=== PATIENT | female | born 1945 | race Caucasian/White ===

== ENCOUNTER 2025-08-01 10:04 | Emergency (ER) | payer MEDICARE, OTHER, SELFPAY ==
[2025-08-01] VITALS (7 sets, daily range): BP systolic 136–170; BP diastolic 84–92; PULSE 62–83; RESP 13–20; TEMP 35.9; O2SAT 94–99; BMI 37.8
--- NOTE | 2025-08-01 10:23 | CRLHL7_ITS ---
For Patients: As a result of the Century Cures Act, medical imaging exams and procedure reports are released immediately into your electronic medical record. You may view this report before your referring provider. If you have questions, please contact your health care provider. INDICATION: Chest pain. TECHNIQUE: Chest 1 views. COMPARISON: None. FINDINGS: Cardiovasculature and mediastinum: Heart size is normal. Unremarkable mediastinum. Lungs and pleural spaces: Lungs are clear. No sign of infiltrate or mass. No sign of pleural effusion. No pneumothorax. Bones and soft tissues: No significant findings. IMPRESSION: Negative chest. Dictated by Archie Butler MD @ 08/01/2025 10:48:32 AM (Electronically Signed)
[2025-08-01 10:34] LABS: Hematocrit* 43.1 % (33.0-51.0); Hemoglobin* 14.7 gm/dL (12.0-16.0); Immature Granulocytes Abs Auto 0.03 K/uL (0.00-0.30); Immature Granulocytes Pct Auto 0.5 %; Lymphocytes Absolute Auto 2.21 K/uL (0.90-2.90); Mean Corpuscular HGB Conc 34 gm/dL (32-36); Mean Corpuscular Hemoglobin 32 pg (26-34); Mean Corpuscular Volume 93 fL (80-100); RDW Coefficient of Variation % 13.4 % (11.5-15.5); Red Blood Count* 4.66 m/uL (4.00-5.20); White Blood Count* 6.13 K/uL (4.50-11.00)
[2025-08-01 10:39] LABS: Slide Review Reflex No
--- NOTE | 2025-08-01 10:42 | ED.CHESTPAIN ---
HPI - Chest Pain General Chief Complaint: Chest Pain Stated Complaint: chest/back pain Time Seen by Provider: 08/01/25 10:19 History of Present Illness HPI narrative: Patient is a 79-year-old woman who comes in today with 5 days of chest pain that she feels on the left side of her chest. She has no radiculopathy no fevers no chills no night sweats. She noticed at the beginning of her symptoms 5 days ago that she had a cracking sensation in the left side of her chest over the area where she is tender in the lateral clavicular line wall sleeping. She has no history of any coronary disease. She is worried that she may have a tumor or be having a heart attack. Time arrival EKG shows normal sinus rhythm without acute ST or T-wave changes. No other significant symptoms noted. Related Data Home Medications ?Medication ?Instructions ?Recorded ?Confirmed amlodipine 5 mg tablet 5 mg PO DAILY 08/01/25 08/01/25 atorvastatin 10 mg PO 08/01/25 gabapentin 300 mg capsule 300 mg PO TID 08/01/25 08/01/25 hydrochlorothiazide 25 mg PO 08/01/25 losartan 100 mg PO 08/01/25 Allergies Allergy/AdvReac Type Severity Reaction Status Date / Time house dust Allergy Unknown Verified 08/01/25 10:10 Review of Systems Status of ROS Reports: 10 or more systems reviewed and unremarkable except as noted in History and below PFSH [facility] Social History Smoking Status: Former smoker Non-prescribed substance use: denies use Exam Narrative Exam Narrative: EXAM GENERAL: Patient appears comfortable and well. EYES: No scleral icterus. LYMPH: No supraclavicular or cervical lymphadenopathy. SKIN: Visible skin seen during exam normal or with benign process only. EXT: No dependent lower extremity pedal edema. HEART: Regular rate and rhythm with no murmurs, rubs, or gallops. LUNGS: Clear to auscultation bilaterally with no crackles or wheezes. ABD: Soft, non tender, non distended. PSYCH: Good eye contact, speech is not pressured. Const Vital Signs, click to edit/add: Vital Signs - 24 hr 08/01/25 10:08 08/01/25 10:10 08/01/25 10:34 Temperature 96.7 F L Pulse Rate 74 Pulse Rate [Pulse Oximeter] 83 Respiratory Rate 20 13 Blood Pressure 168/84 H Blood Pressure [Right Upper Arm] 136/90 H Pulse Oximetry 96 94 95 Oxygen Delivery Method Room Air 08/01/25 11:01 Temperature Pulse Rate 62 Pulse Rate [Pulse Oximeter] Respiratory Rate Blood Pressure 164/92 H Blood Pressure [Right Upper Arm] Pulse Oximetry 95 Oxygen Delivery Method Course Course ED Course: Patient seen examined. EKG personally reviewed. CBC comprehensive metabolic panel troponin D-dimer portable chest x-ray pending. Vital Signs Vital signs: Initial Vital Signs Temperature 96.7 F L 08/01/25 10:08 Temperature Source Temporal Artery Scan 08/01/25 10:08 Pulse Rate 83 08/01/25 10:08 Respiratory Rate 20 08/01/25 10:08 Blood Pressure 136/90 H 08/01/25 10:08 Blood Pressure Mean 105 08/01/25 10:08 Blood Pressure Position Sitting 08/01/25 10:08 Pulse Oximetry 96 08/01/25 10:08 Oxygen Delivery Method Room Air 08/01/25 10:08 Vital Signs Temperature 96.7 F L 08/01/25 10:08 Pulse Rate 83 08/01/25 10:08 Respiratory Rate 20 08/01/25 10:08 Blood Pressure 136/90 H 08/01/25 10:08 Pulse Oximetry 96 08/01/25 10:08 Oxygen Delivery Method Room Air 08/01/25 10:08 Temperature 96.7 F L 08/01/25 10:08 Pulse Rate 62 08/01/25 11:01 Respiratory Rate 13 08/01/25 10:34 Blood Pressure 164/92 H 08/01/25 11:01 Pulse Oximetry 95 08/01/25 11:01 Oxygen Delivery Method Room Air 08/01/25 10:08 MDM - Chest Pain MDM Narrative Medical decision making narrative: Patient is a 79-year-old woman who rolled over in bed 5 days ago and heard a popping sensation in the left lateral chest. She has had 4 to 5/10 pain. She comes in today were EKG shows normal sinus rhythm without acute ST or T-wave changes. D-dimer borderline bed think still acceptable troponin negative electrolytes unremarkable CBC unremarkable chest x-ray unremarkable upon my review. My exam is unremarkable in her labs are stable. At this time I did ask her to rotate Tylenol Motrin ice follow-up with her primary physician as needed. Lab Data Labs: Lab Results 08/01/25 Range/Units 10:25 WBC 6.13 (4.50-11.00) K/uL RBC 4.66 (4.00-5.20) m/uL Hgb 14.7 (12.0-16.0) gm/dL Hct 43.1 (33.0-51.0) % MCV 93 (80-100) fL MCH 32 (26-34) pg MCHC 34 (32-36) gm/dL RDW Coeff of Valentina 13.4 (11.5-15.5) % Plt Count 212 (140-440) K/uL Neut % (Auto) 48.2 (42.0-72.0) % Lymph % (Auto) 36.1 (20-44) % [place] % (Auto) 12.1 H (0.0-11.0) % Eos % (Auto) 2.3 (0.0-7.0) % Baso % (Auto) 0.8 (0.0-3.0) % Neut # (Auto) 2.96 (1.7-7.0) K/uL Lymph # (Auto) 2.21 (0.90-2.90) K/uL [place] # (Auto) 0.70 (0.00-0.90) K/UL Eos # (Auto) 0.14 (0.00-0.50) K/uL Baso # (Auto) 0.05 (0.00-0.30) K/uL Abs Immat Gran (auto) 0.03 (0.00-0.30) K/uL Imm/Tot Granulo (auto) 0.5 % D-Dimer Quant (PE/DVT) 0.70 H (0.00-0.50) ug/ml Sodium 133 L (135-149) mmol/L Potassium 3.8 (3.6-5.1) mmol/L Chloride 98 (96-114) mmol/L Carbon Dioxide 26 (20-32) mmol/L Anion Gap 9 (7-15) mEq/L BUN 15 (7-30) mg/dL Creatinine 0.7 (0.5-1.5) mg/dL Estimated Creat Clear 40.68 Estimated GFR 89 ml/min Glucose 116 H (60-115) mg/dL Calcium 9.3 (8.4-10.6) mg/dL Total Bilirubin 0.8 (0.1-1.5) mg/dL AST 39 H (12-35) U/L ALT 33 (4-35) U/L Alkaline Phosphatase 68 (40-150) U/L Troponin I < 0.01 (0.01-0.04) ng/mL Total Protein 7.4 (6.0-8.3) g/dL Albumin 4.5 (3.3-5.0) g/dL POC Troponin I 0.00 L (0.01-0.04) ng/ml Discharge Plan Discharge Clinical Impression: Chest pain Patient Disposition: Home, Self-Care Condition: Stable Instructions: Chest Pain (ED) Additional Instructions: Tylenol 650 mg 4 times a day as needed Motrin 600 mg 4 times a day as needed Ice Follow-up with your doctor as needed. Activity Level: No Restrictions Discharge Diet: Regular Prescriptions: No Action losartan 100 mg PO atorvastatin 10 mg PO hydrochlorothiazide 25 mg PO amlodipine 5 mg tablet 5 mg PO DAILY gabapentin 300 mg capsule 300 mg PO TID Follow Up/Referrals: Suzanne Frank DO [Primary Care Provider, Family Practice] Stand Alone Forms: MyHealth Info Instructions
[2025-08-01 10:47] LABS: Chloride* 98 mmol/L (96-114)
[2025-08-01 10:48] LABS: Albumin* 4.5 g/dL (3.3-5.0); Potassium* 3.8 mmol/L (3.6-5.1); Sodium* 133 mmol/L (135-149)
[2025-08-01 10:51] LABS: Alanine Aminotransferase* 33 U/L (4-35); Alkaline Phosphatase* 68 U/L (40-150); Anion Gap 9 mEq/L (7-15); Aspartate Amino Transferase* 39 U/L (12-35); Bilirubin Total* 0.8 mg/dL (0.1-1.5); Blood Urea Nitrogen* 15 mg/dL (7-30); Calcium* 9.3 mg/dL (8.4-10.6); Carbon Dioxide* 26 mmol/L (20-32); Creatinine* 0.7 mg/dL (0.5-1.5); Est. Creatinine Clearance* 40.68; Estimated Glomerular Filt Rate 89 ml/min; Glucose* 116 mg/dL (60-115); Total Protein* 7.4 g/dL (6.0-8.3)
[2025-08-01 10:53] LABS: D Dimer Quantitative* 0.70 ug/ml (0.00-0.50); Troponin, Point-of-Care* 0.00 ng/ml (0.01-0.04)
--- OUTSIDE RECORDS SUMMARY | 2025-08-01 11:06 | XMS_ITS | Clinical Summary ---
Author Organization [employer] [facility] Address [facility] [place] [address] Care Team Providers Care Master Naval Parachutist Name Role Phone Suzanne Frank DO Primary Care Provider [phone] David Daly MD Unavailable Allergies Active Allergy Reactions Criticality Noted Date Comments Diclofenac 05/12/2009 Lisinopril Cough 03/28/2016 Piroxicam Cough 05/12/2009 Unknown-Follow Up Needed (Include Details In Comments) Cough 05/16/2010 Pain med- pt unsure of name Medications MULTIVITAMIN TAB take 1 tablet by oral route once daily with food 0 05/07/20 08 Active medication order [facility] Triple strength that contains Glucosamine Hydrochloride 1500 mg and Chondroitin Sulfate Sodium 1200 mg. Per patient medical message dated 06/16/21 0 06/16/20 21 Active Blood Pressure Monitor KitIndications:Hy pertension, unspecified type Frequency of testing: daily 1 Each 10/20/19 25 Active gabapentin (NEURONTIN) 300 mg capsule Take 300 mg by mouth three times daily. 07/29/20 24 Active atorvastatin (LIPITOR) 10 mg tabletIndications :Hyperlipidemia, unspecified hyperlipidemia type Take 1 Tablet (10 mg) by mouth at bedtime. 90 Tablet 3 11/17/19 25 Active amLODIPine 5 mg tabletIndications :HTN (hypertension) Take 1 Tablet (5 mg) by mouth once daily. 90 Tablet 2 04/14/20 25 Active losartan (COZAAR) 100 mg tabletIndications :HTN (hypertension) Take 1 Tablet (100 mg) by mouth once daily. 90 Tablet 06/12/20 25 Active hydroCHLOROthiazi de 25 mg tabletIndications :HTN (hypertension) Take 1 Tablet (25 mg) by mouth once daily. 90 Tablet 07/08/20 25 Active hydroCHLOROthiazi de 25 mg tabletIndications :HTN (hypertension) Take 1 Tablet (25 mg) by mouth once daily. 90 Tablet 1 11/17/19 25 025 Discontin ued(Reord er (E-cancel not sent)) Active Problems Problem Noted Date Diagnosed Date Multiple thyroid nodules 02/17/2025 Overview (02/17/2025): Identified on US in February 2025; one year follow up recommended. Mixed hyperlipidemia 01/07/2025 Class 2 severe obesity due t o excess calories with serious comorbidity and body mass index (BMI) of 39.0 to 39.9 in adult 01/07/2025 Osteoarthritis of spine with radiculopathy, lumb ar region 01/07/2025 Elevated glucose 01/07/2025 Obesity (BMI 30-39.9) 06/01/2021 Trigger thumb 05/11/2015 Degenerative arthritis of thumb 03/22/2015 Family history of breast cancer in mother 2010 HTN (hypertension) Tobacco abuse, in remission Encounters Date Type Department Care Team Description 07/31/2025 Nurse Triage [facility] [address] [place] [address] Suzanne Frank, DO Chest Pain 07/07/2025 Refill [facility] [address] [place] [address] Suzanne Frank, DO Refill Request (Hydrochlorothiazide 25mg tablets) 06/30/2025 7:30 AM CDT Office Visit [facility] [address] [place] [address] Suzanne Frank, DO Cough (Patient states she has had a cough for 12 days. She has used over the counter medications to help, but it hasn't cleared up. She has had runny nose.) 06/30/2025 Travel 06/28/2025 Travel 06/26/2025 Travel 06/12/2025 11:30 AM CDT Telemedicine [facility] [address] [place] [address] David Daly MD Telehealth (No vitals taken; Pt is in [place], [place] /); Medication Management ([facility]/ NO MEDS/) 06/10/2025 Refill [facility] [address] [place] [address] Suzanne Frank DO Refill Request (Losartan 100mg) 06/07/2025 Travel 05/20/2025 Orders Only [address] [address] Ladarius Griffith MD <No scans attached> 05/18/2025 2:00 PM CDT Ancillary Procedure [facility] [address] [place] [address] 05/18/2025 Travel 05/13/2025 Orders Only [facility] Scanner 1 scan: (1-Ord) INCOMING RECORDS-MRI, [facility], 05/13/2025 05/13/2025 Travel 05/12/[address] [address] Ladarius Griffith MD Questions (X-ray) 05/07/2025 10:30 AM CDT Office Visit [address] [address] Ladarius Griffith MD Consult () - Subclinical hyperthyroidism/E04. 2 (ICD-10-CM) - Multiple thyroid nodules/R94.6 (ICD-10-CM) - Abnormal thyroid radioactive iodine uptake (RAIU) test /referred bySuzanne Frank DO /) 05/07/2025 Travel 05/02/2025 Travel from Last 3 Months Immunizations Immunization Administration Dates Next Due COVID-19 vaccine ([employer] 30mcg/0.3mL) P F, MDV 12/31/2020,12/10/2020 Pneumococcal Poly,23-Valent (Pneumovax) 06/01/20 21 Pneumococcal conj 13-Valent (Prevnar 13) 019 RSV, Recombinant ADJ Reconst ituted (Arexvy 120MCG/0.5mL) 12/15/2024 Td (Age >=7 Years) 05/12/2019,10/27/1997 Tdap 06/03/2007 Family History Medical History Relation Name Comments Hypertension Father Cancer-breast Mother 53 old Other Mother mastectomy- Cancer-colon Paternal Aunt Cancer-ovarian No Family History Cancer-prostate No Family History Relation Name Status Comments Father Mother Alive b 1924 Paternal Aunt Social History Tobacco Use Types Packs/Day Years Used Date Smoking Tobacco: Former Smokeless Tobacco: Never Comments:Quit 1974 Alcohol Use Standard Drinks/Week Comments No 0 (1 standard drink = 0.6 oz pur e alcohol) PHQ-2 Answer Date Recorded PHQ-2 TOTAL SCORE 0 11/17/2024 Social Connections Answer Date Recorded Do you often feel lonely or isolated from those around you? 0 09/17/2024 Alcohol Use Answer Date Recorded How often do you have a drink containing alcohol ? 0 06/30/2025 How many drinks containing a lcohol do you have on a typical day when you are drinking? 0 06/30/2025 How often do you have five or more drinks on one occasion? 0 06/30/2025 Financial Resource Strain Answer Date R ecorded Difficulty of Paying Living Expenses 3 09/17/2024 Difficulty of Paying Living Expenses Not on file 09/17/2024 Food Insecurity Answer Date Recorded Do you worry your food will run out before you are able to buy more? 1 09/17/2024 Transportation Needs Answer Date Record ed Does lack of transportation keep you from medica l appointments? 1 09/17/2024 Does lack of transportation keep you from work, meetings or getting things that you need? 1 09/17/2024 Housing Stability Answer Date Recorded What is your housing situation today? 1 09/17/2024 Utilities Answer Date Recorded Do you have trouble paying f or utilities (for example, heat, electricity, water, phone)? 1 09/17/2024 Comments No Sex and Gender Information Value Date Recorded Sex Assigned at Not on file Legal Sex Female 6:29 AM WORKFORCE STAFFING ADVISOR Gender Identity Not on file Sexual Orientation Not on file Obstetrics History Para Term AB IAB SAB Ectopic Multiple Livin g Live Births 2 2 2 0 0 0 0 0 0 2 Date Outcome GA Total Labor Labor/2nd/3rd Weight Sex Type Anes PTL Jojo A1 A5 Name Clin Term 40w0d M Vag Para Vag Term 40w0d M Vag Para Vag Last Filed Vital Signs Vital Sign Reading Time Taken Comments Blood Pressure 127/83 06/30/2025 7:55 AM CDT Pulse 78 06/30/2025 7:55 AM CDT Temperature 36.6 C (97.9 F) 06/30/2025 7:37 AM CDT Respiratory Rate 16 11/16/2017 9:37 AM WORKFORCE STAFFING ADVISOR Oxygen Saturation 97% 06/30/2025 7:37 AM CDT Inhaled Oxygen Concentration - - Weight 99.8 kg (220 lb) 06/30/2025 7:37 AM CDT Height 162.5 cm (5' 3.98) 06/12/2025 11:00 AM C DT Body Mass Index 37.79 06/12/2025 11:00 AM CDT Plan of Treatment Upcoming Encounters Date Type Department Care Team (Late st Contact Info) Description 08/20/2025 11:15 AM WORKFORCE STAFFING ADVISOR Orders Only [facility] [address] [place] [address] [place], [place] 09/22/2025 11:30 AM WORKFORCE STAFFING ADVISOR Telemedicine [facility] [address] [facility] [address] [place] [phone] David Daly MD [address] [place] [address] [place] [address] 10/06/2025 2:00 PM WORKFORCE STAFFING ADVISOR Appointment [facility] [address] [place] [address] 11/06/2025 10:55 AM WORKFORCE STAFFING ADVISOR Office Visit [facility] [address] [facility] [address] [place], [place] [id number] [place] [address] [address] [place], [place] [phone] Health Maintenance Due Date Last Done Comments Zoster (shingles) series for age 50+ (1 of 2) 1997 Influenza Vaccine (#1) 2025 Depression screening for age 12+ 11/17/2025 11/17/2024, 08/29/2023, 06/20/2022, Additional history exists Medicare Wellness for age 65+ 11/18/2025 11/17/2024, 07/30/2023, 06/20/2022, Additional history exists BMI (ht and wt on same day) for age 18+ 06/12/2026 06/12/2025, 03/09/2025, 01/07/2025, Additional history exists Tetanus booster 05/12/2029 05/12/2019, 05/09, 10/27/1997 Pneumococcal series for age 50+ Completed 06/01/2021, 05/12/2019 Hepatitis C screening for age 18-79 Completed 11/17/2024 RSV vaccine for adults or Completed 12/15/2024 DEXA/DXA scan for age 65+ Completed 05/18/2025, 08/2014 Hepatitis B series for 19+ Aged Out N o longer eligible based on patient's age to complete this topic Procedures Procedure Name Priority Date/Time Associated Diagnosis Comments XR DXA BONE DENSITY 2 SITES AXIAL Routine 05/18/2025 2:23 PM CDT Osteoporosis without current pathological fracture, unspecified osteoporosis type SCAN CORRESP-IMAGING 05/13/2025 12:00 AM CDT ANTI HCV Routine 11/17/2024 1:43 PM WORKFORCE STAFFING ADVISOR Need for hepatitis C screening test from Last 3 Months or Most Recently Relevant to Health Maintenance Results * XR DXA BONE DENSITY 2 SITES AXIAL (05/18/2025 2:23 PM CDT) Anatomical Region Laterality Modality Spine, HIPS, HIPL, HIPR Computed Radiography Impressions 05/20/2025 6:15 AM CDT Normal bone density. RECOMMENDATIONS: The National Osteoporosis Foundation recommends pharmacologic treatment for patients with T-scores of -2.5 or less, patients with prior history of fragility fractures, or patients with 10-year probability of greater than 3% at hips or greater than 20% of suffering major osteoporotic fractures. Recommend continued optimization of calcium and vitamin D intake through dietary means and/or supplementation and regular exercise. RONAN ADLER M.D. [email or web address] Narrative 05/20/2025 6:15 AM CDT For Patients: Results are automatically released to your [employer]) account once available, in compliance with federal regulations. This means that you may see your results before your provider has had a chance to review them. Please allow 2-3 business days for your provider to comment on the results. XR DXA Bone Mineral Density (BMD) EXAM LOCATION: [address] [address] PATIENT NAME: Steffany Walden DATE OF : 1945 EXAM DATE: 05/18/2025 REQUESTING PROVIDER: Ladarius Griffith MD GENDER AT : female HEIGHT: 64 inches WEIGHT: 218 pounds MENOPAUSAL STATUS: Postmenopausal RACE/ETHNICITY: White RISK FACTORS: History of Fragility Fracture (at a major site), Smoking (prior), and White Race CURRENT MEDICATION FOR BONE LOSS: NONE INDICATION: Osteoporosis without current pathological fracture, unspecified osteoporosis type COMPARISON DATE(S): None DXA scans are compared to prior studies for a patient only when the two (or more) studies were performed on the same scanner. It is not possible to compare data generated on one scanner to data from another because there are not standards in DXA equipment. This applies even if the two scanners are made by the same ict development manager. PROCEDURE: Dual-energy x-ray absorptiometry performed with routine technique. Reporting is completed in the form of a T-score. The T-score represents the standard deviation from peak bone mass based on young healthy adult. A Z-score is used for diagnosis in premenopausal women, and for men under the age of 50. FINDINGS: RESULT LUMBAR SPINE L1 - L4 BMD: 1.093 g/cm2 T-Score: - 0.7 Z-Score: - 0.1 RESULTS FEMUR Left femoral neck BMD: 1.016 g/cm2 T-Score: - 0.2 Z-Score: + 1.1 Right femoral neck BMD: 1.062 g/cm2 T-Score: + 0.2 Z-Score: + 1.5 Left total hip BMD: 1.014 g/cm2 T-Score: + 0.0 Z-Score: + 1.1 Right total hip BMD: 1.059 g/cm2 T-Score: + 0.4 Z-Score: + 1.5 WHO Criteria: Normal: T-score at or above -1 SD Osteopenia: T-score between -1.1 and -2.4 SD Osteoporosis: T-score at or below -2.5 SD us Ladarius Griffith MD DEXA Final Result * SCAN CORRESP-IMAGING (05/13/2025 12:00 AM CDT) Anatomical Region Laterality Modality Other us Scanner OTHER Final Result * ANTI HCV (11/17/2024 1:43 PM WORKFORCE STAFFING ADVISOR) HEPATITIS C ANTIBODY NON-REACTI VE NON-REACT [facility] Comment: HCV antibody was non-reactive. There is no laboratory evidence of HCV infection. In most cases, no further action is required. However, if recent HCV exposure is suspected, a test for HCV RNA (test code 71034) is suggested. For additional information please refer to http://education.[employer]/faq/PMY92f8 (This link is being provided for informational/ educational purposes only.) Blood BLOOD SPECIMEN / Unknown 11/17/2024 1:43 PM WORKFORCE STAFFING ADVISOR 11/17/2024 1:45 PM WORKFORCE STAFFING ADVISOR Narrative [facility] - 11/18/2024 2:04 PM WORKFORCE STAFFING ADVISOR FASTING:NO FASTING: NO us Suzanne Frank DO SEND OUTS Final Resu lt [facility] [address] [place] [address], [facility] [address] [place] [address] from Last 3 Months or Most Recently Relevant to Health Maintenance Insurance MEDICARE PART B HB ONLY MEDICARE PART A HB ONLY MEDICA PRIME SOLUTION HB MEDICA PRIME SOLUTIONS MR PB ONLY [address] [place] [id number] Care Teams Master Naval Parachutist Relationship Specialty Start Date End Date Suzanne Frank DO [address] [place] [address] PCP - General Family Practice 11/03/24 David Daly MD [address] [facility] [address] [place] [address] Family Practice 12/08/24
== END 2025-08-01 11:30 | disposition home or self-care (01) ==
PROVIDERS: Emergency Provider Internal Medicine; PCP Family Medicine
DX: R07.89 Other chest pain (principal); X50.1XXA Overexertion from prolonged static or awkward postures, initial encounter
CPT/HCPCS: 36415; 71045; 80053; 84484; 85025; 85379; 94761; 99283; 99284